=== PATIENT | female | born 1935 | race Caucasian/White ===

== ENCOUNTER 2018-07-14 15:02 | Inpatient (IN) ==
[2018-07-14 17:36] LABS: Apearance,Urine CLEAR (Clear); Bilirubin,Urine Negative (Negative); Blood, Urine Negative (Negative); Glucose,Urine (UA) Negative (Negative); Hyaline Casts,Urine 1 /LPF (0-3); Ketones,Urine 5 mg/dL (Negative); Nitrite,Urine Negative (Negative); Protein,Urine Negative; RBC,Urine 1 /HPF (0-4); Squamous Epithelial Cell,Urine Occasional /HPF (0-10); Urine Color Yellow (Yellow); Urine Urobilinogen < 2.0 EU/DL (0.2-1.0); WBC,Urine 1 /HPF (0-6)
[2018-07-14 17:57] LABS: Basophils # 0.1 10*3/uL (0.0-0.2); Basophils % 0.7 % (0.0-0.8); Eosinophils # 0.3 10*3/uL (0.0-0.87); Eosinophils % 4.5 % (0.00-10.9); Hematocrit 37.4 VOL% (35.7-47.0); Hemoglobin 11.9 GM/DL (12.0-16.0); Immature Granulocytes % 0.4 %; Immature Granulocytes Absolute 0.03 #; Lymphocytes # 1.8 10*3/uL (1.4-4.0); Lymphocytes % 24.1 % (21.3-54.2); Mean Corpuscular HGB Conc 31.8 GM/DL (32-36); Mean Corpuscular Hemoglobin 30 PG (27-34); Mean Corpuscular Volume 94.2 FL (87-102); Mean Platelet Volume 9.6 FL (9.6-12.0); Monocytes # 0.6 10*3/uL (0.11-0.8); Neutrophils # 4.7 10*3/uL (1.4-7.4); Neutrophils % 62.3 % (38.7-73.9); Platelet Count 204 T/CUMM (130-400); Red Blood Count 3.97 MC/CUMM (3.8-5.5); Red Cell Distribution Width 13.5 % (9.3-17.3); White Blood Count 7.5 T/CUMM (4-12)
[2018-07-14 18:25] LABS: Alanine Aminotransferase 10 U/L (13-56); Albumin 3.6 G/DL (3.4-5.0); Alkaline Phosphatase 42 U/L (45-117); Aspartate Amino Transferase 25 U/L (0-37); Blood Urea Nitrogen 39 MG/DL (7-18); CKMB % 2.2 %; Calcium 9.4 MG/DL (8.5-10.1); Glucose 85 MG/DL (74-106); Sodium 143 MMOL/L (136-145); Total Protein 6.8 G/DL (6.4-8.3); Troponin I Only < 0.015 NG/ML (0.00-0.045)
[2018-07-14 18:27] LABS: INR 1.1; PT Patient Result 11.2 SECS; Partial Thromboplastin Time 26.2 SECS (0-40)
[2018-07-14] MEDS ORDERED: BISACODYL 5 MG TABLET PO PRN (18:47)
[2018-07-14] MEDS ORDERED: NICOTINE 21 MG/24 HR PATCH TRANSDERM PRN (18:47)
[2018-07-14] MEDS ORDERED: PROMETHAZINE 25 MG/1 ML VIAL IM PRN (18:47)
[2018-07-14] MEDS ORDERED: ONDANSETRON 4 MG/2 ML VIAL IV PRN (18:47)
[2018-07-14] MEDS ORDERED: ACETAMINOPHEN 325 MG TABLET PO PRN (18:47)
[2018-07-14] MEDS ORDERED: DOCUSATE SODIUM 100 MG CAPSULE PO PRN (18:47)
[2018-07-14] MEDS ORDERED: hydrALAZINE 20 MG/1 ML VIAL IV PRN (19:02)
[2018-07-14] MEDS: OMEGA 3 ACID ETHYL ESTERS 1 GM CAPSULE PO SCH (22:04)
[2018-07-14] MEDS: OXYBUTYNIN 5 MG TABLET PO SCH (22:04)
[2018-07-14] MEDS: GABAPENTIN 300 MG CAPSULE PO SCH (22:06)
[2018-07-14] MEDS: rOPINIRole 1 MG TABLET PO SCH (22:06)
[2018-07-14] MEDS: AMANTADINE 100 MG CAPSULE PO SCH (22:07)
[2018-07-14 22:13] LABS: CKMB % 2.2 %; Troponin I Only < 0.015 NG/ML (0.00-0.045)
[2018-07-14] MEDS: SODIUM CHLORIDE 0.9% 1,000 ML IV SCH (22:15)
[2018-07-14] MEDS: ENOXAPARIN 30 MG/0.3 ML SYRINGE SUBCUT SCH (22:16)
[2018-07-15 05:13] LABS: Basophils % 0.7 % (0.0-0.8); Eosinophils # 0.3 10*3/uL (0.0-0.87); Eosinophils % 5.7 % (0.00-10.9); Hematocrit 38.1 VOL% (35.7-47.0); Hemoglobin 12.1 GM/DL (12.0-16.0); Immature Granulocytes % 0.2 %; Immature Granulocytes Absolute 0.01 #; Lymphocytes # 1.6 10*3/uL (1.4-4.0); Lymphocytes % 28.3 % (21.3-54.2); Mean Corpuscular HGB Conc 31.8 GM/DL (32-36); Mean Corpuscular Hemoglobin 30 PG (27-34); Mean Corpuscular Volume 94.8 FL (87-102); Mean Platelet Volume 10.6 FL (9.6-12.0); Monocytes # 0.5 10*3/uL (0.11-0.8); Monocytes % 8.9 % (1.7-12.7); Neutrophils # 3.2 10*3/uL (1.4-7.4); Neutrophils % 56.2 % (38.7-73.9); Platelet Count 185 T/CUMM (130-400); Red Blood Count 4.02 MC/CUMM (3.8-5.5); Red Cell Distribution Width 13.5 % (9.3-17.3); White Blood Count 5.8 T/CUMM (4-12)
[2018-07-15 05:36] LABS: Folate > 24.0 NG/ML (5.4-24.0)
[2018-07-15 05:40] LABS: CKMB % 2.7 %; Troponin I Only < 0.015 NG/ML (0.00-0.045)
[2018-07-15 05:46] LABS: Albumin 3.4 G/DL (3.4-5.0); Bilirubin,Total 0.4 MG/DL (0.2-1.0); Calcium 9.7 MG/DL (8.5-10.1); Osmolality,Calculated 284.4 MOS/KG (273-304); Potassium 4.6 MMOL/L (3.5-5.1); Risk Ratio 3.83; Thyroid Stimulating Hormone 6.42 uIU/ml (0.358-3.74); Total Protein 6.7 G/DL (6.4-8.3); VLDL CHOLESTEROL 30.6 MG/DL
[2018-07-15] MEDS ORDERED: GINKGO BILOBA 120 MG PO SCH (09:00)
[2018-07-15] MEDS ORDERED: ATENOLOL 50 MG TABLET PO SCH (09:00)
[2018-07-15] MEDS ORDERED: TRIAMTERENE/HCTZ 37.5-25 MG CAPSULE PO SCH (09:00)
[2018-07-15] MEDS ORDERED: NON-FORMULARY MEDICATION (Biotin [Biotin] 5,000 MCG) PO SCH (09:00)
[2018-07-15] MEDS ORDERED: LISINOPRIL 20 MG TABLET PO SCH (09:00)
[2018-07-15] MEDS: CARBIDOPA/LEVODOPA 25-100 MG TABLET PO SCH ×3 (09:01→16:20)
[2018-07-15] MEDS: ASPIRIN EC 325 MG TABLET PO SCH (09:01)
[2018-07-15] MEDS: MULTIVITAMIN (CENTRUM) TABLET PO SCH (09:01)
[2018-07-15] MEDS: CHOLECALCIFEROL 1,000 UNIT TABLET PO SCH (09:02)
[2018-07-15] MEDS: OXYBUTYNIN 5 MG TABLET PO SCH ×3 (09:02→20:33)
[2018-07-15] MEDS: OMEGA 3 ACID ETHYL ESTERS 1 GM CAPSULE PO SCH ×3 (09:02→20:46)
[2018-07-15] MEDS: AMANTADINE 100 MG CAPSULE PO SCH ×2 (09:02→20:34)
[2018-07-15] MEDS: rOPINIRole 1 MG TABLET PO SCH ×3 (09:03→20:34)
[2018-07-15] MEDS: CALCIUM (CARBONATE) 600 MG TABLET PO SCH (09:03)
[2018-07-15] MEDS: PANTOPRAZOLE 40 MG TABLET PO SCH (09:03)
[2018-07-15] MEDS: amLODIPine 10 MG TABLET PO SCH (09:04)
[2018-07-15] MEDS: ENOXAPARIN 30 MG/0.3 ML SYRINGE SUBCUT SCH (20:38)
[2018-07-15] MEDS: GABAPENTIN 300 MG CAPSULE PO SCH (21:00)
[2018-07-16] MEDS: SODIUM CHLORIDE 0.9% 1,000 ML IV SCH ×2 (04:16→11:27)
[2018-07-16 05:48] LABS: Free T4 (Free Thyroxine) 1.08 NG/DL (0.76-1.46); Osmolality,Calculated 288.8 MOS/KG (273-304); Potassium 4.6 MMOL/L (3.5-5.1)
[2018-07-16] MEDS: rOPINIRole 1 MG TABLET PO SCH ×3 (08:34→21:24)
[2018-07-16] MEDS: CHOLECALCIFEROL 1,000 UNIT TABLET PO SCH (08:34)
[2018-07-16] MEDS: OXYBUTYNIN 5 MG TABLET PO SCH ×3 (08:35→21:24)
[2018-07-16] MEDS: amLODIPine 10 MG TABLET PO SCH (08:35)
[2018-07-16] MEDS: PANTOPRAZOLE 40 MG TABLET PO SCH (08:35)
[2018-07-16] MEDS: CARBIDOPA/LEVODOPA 25-100 MG TABLET PO SCH ×3 (08:35→16:53)
[2018-07-16] MEDS: CALCIUM (CARBONATE) 600 MG TABLET PO SCH (08:36)
[2018-07-16] MEDS: OMEGA 3 ACID ETHYL ESTERS 1 GM CAPSULE PO SCH ×3 (08:36→21:24)
[2018-07-16] MEDS: MULTIVITAMIN (CENTRUM) TABLET PO SCH (08:36)
[2018-07-16] MEDS: ASPIRIN EC 325 MG TABLET PO SCH (08:36)
[2018-07-16] MEDS: AMANTADINE 100 MG CAPSULE PO SCH ×2 (08:36→21:24)
[2018-07-16] MEDS: LOSARTAN 25 MG TABLET PO SCH ×2 (09:16→21:24)
[2018-07-16] MEDS: GABAPENTIN 300 MG CAPSULE PO SCH (21:24)
[2018-07-16] MEDS: ENOXAPARIN 30 MG/0.3 ML SYRINGE SUBCUT SCH (21:25)
[2018-07-16] MEDS ORDERED: TEMAZEPAM 15 MG CAPSULE PO PRN (22:52)
[2018-07-17] MEDS: SODIUM CHLORIDE 0.9% 1,000 ML IV SCH (03:59)
[2018-07-17] MEDS: amLODIPine 10 MG TABLET PO SCH (09:26)
[2018-07-17] MEDS: rOPINIRole 1 MG TABLET PO SCH ×2 (09:26→14:23)
[2018-07-17] MEDS: MULTIVITAMIN (CENTRUM) TABLET PO SCH (09:27)
[2018-07-17] MEDS: PANTOPRAZOLE 40 MG TABLET PO SCH (09:27)
[2018-07-17] MEDS: CALCIUM (CARBONATE) 600 MG TABLET PO SCH (09:27)
[2018-07-17] MEDS: CARBIDOPA/LEVODOPA 25-100 MG TABLET PO SCH ×2 (09:27→14:24)
[2018-07-17] MEDS: AMANTADINE 100 MG CAPSULE PO SCH (09:27)
[2018-07-17] MEDS: LOSARTAN 25 MG TABLET PO SCH (09:27)
[2018-07-17] MEDS: OXYBUTYNIN 5 MG TABLET PO SCH ×2 (09:27→14:24)
[2018-07-17] MEDS: ASPIRIN EC 325 MG TABLET PO SCH (09:27)
[2018-07-17] MEDS: CHOLECALCIFEROL 1,000 UNIT TABLET PO SCH (09:27)
[2018-07-17] MEDS: OMEGA 3 ACID ETHYL ESTERS 1 GM CAPSULE PO SCH ×2 (09:27→14:24)
[2018-07-17] MEDS ORDERED: POLYETHYLENE GLYCOL POWDER 17 GM PACK PO SCH (14:00)
[2018-07-17 16:49] VITALS: BP 128/72
== END 2018-07-17 17:03 | disposition home health service (06) | DRG 57 ==
LOC: N.ED 15:02 → N.EDINP 18:47 → N.4E 19:52
PROVIDERS: ADMIT Hospitalist; ATTEND Hospitalist